=== PATIENT | female | born 1980 | race Caucasian/White ===

== ENCOUNTER 2017-01-07 08:14 | Emergency (ER) | payer OTHER ==
[~2017-01-07] VITALS: Ht 170.2 cm; Wt 66.1 kg
[~2017-01-07 08:14] MED LIST: BIOT1TAB5 PO; CALC-478 PO; DOCO1CAP PO; PRENTAB26 PO
[2017-01-07 08:16] VITALS: TEMP 36.7; Ht 170.2 cm; Wt 66.1 kg
[2017-01-07] MEDS ORDERED: KETOROLAC TROMETHAMINE 60 MG/2 ML VIAL IM STA (08:51)
[2017-01-07] MEDS ORDERED: IBUP-1050 PO (09:04)
[2017-01-07] MEDS ORDERED: MULT-506 PO (09:06)
--- NOTE | 2017-01-07 09:24 | DIAGNOSTIC IMAGING REPORT ---
RIGHT ANKLE 3 VIEWS CLINICAL HISTORY: Twisting injury. Fall. FINDINGS: 3 views of the right ankle are obtained. No prior studies are available for comparison at the time of dictation. The skeletal structures are well mineralized. No fracture is seen. The ankle mortise is intact. There is no joint effusion. The overlying soft tissues are within normal limits. IMPRESSION: Unremarkable radiographic assessment of the right ankle. Electronically signed by: Antony Gomez M.D. 01/07/2017 9:23 AM Dictated Date/Time: 01/07/2017 9:22 AM
[2017-01-07] MEDS ORDERED: HYDR-5688 PO (10:20)
--- NOTE | 2017-01-07 10:24 | EMERGENCY ROOM VISIT NOTE ---
ED Visit Note First contact with patient: 08:21 CHIEF COMPLAINT: Fall last night, right foot and ankle and sacral pain HISTORY OF PRESENT ILLNESS: Patient is a healthy 36-year-old white female who presents to the emergency department for evaluation of right foot and ankle pain and sacral pain. She slipped on her stairs last evening, sustaining an inversion injury to the right foot and ankle, then fell landing on her buttocks and slid down the remaining stairs. She complains of bruising, pain, swelling and superficial abrasions in the lateral aspect of the right foot and ankle, as well as sacral pain. She is more comfortable if she keeps pressure on the right hip and buttock. She has been able to walk and bear weight, but has been keeping more weight on the medial aspect of the foot. She took ibuprofen with minimal relief. She denies any lumbar back pain, no numbness, tingling or weakness into the lower extremities, no bowel or bladder incontinence. She did report some sacral discomfort when she had a bowel movement this morning. She rates her pain a 8/10. She denies any other injuries. REVIEW OF SYSTEMS: Review of systems as per HPI. All other systems reviewed were negative. 10 systems reviewed. PMH: Electronic medical records are reviewed and summarized as above/below. See Problem List. SOCIAL HISTORY: Patient lives at home with her and children. 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 Does not smoke. PHYSICAL EXAM: Vital Signs: Reviewed Nurse's notes. MENTAL STATUS: Uncomfortable appearing 36-year-old white female who is awake and alert in mild distress due to her stated complaint. MUSCULOSKELETAL: Examination of the right foot and ankle show superficial abrasion, and ecchymosis laterally over the ankle, and into the dorsum of the left foot. She is tenderness over the lateral malleolus, the lateral ankle ligaments and over the proximal fifth metatarsal head. No pain over the proximal fibular head. Lisfranc joint is negative. There is no deformity. The foot and toes are warm and well-perfused. Sensation to pain and light touch is intact. SPINE: Examination of the sacrococcygeal region does not show any ecchymosis, abrasions or outward signs of trauma. She is exquisitely tender over the coccyx , no obvious deformity. There is no pain over the lumbar spine. Bilateral lower extremity's are neurovascularly intact. EMERGENCY DEPARTMENT COURSE: Patient was medicated with Toradol 60 mg IM. X- rays of the right foot and ankle were obtained, and negative for acute fracture or bony abnormality. Conservative care measures were discussed. Patient declined postoperative shoe. She clinically has a right foot and ankle sprain. Possibility of a coccygeal contusion versus fracture were also discussed. Treatment recommendations were the same whether radiographs were performed or not, and she was agreeable to defer on coccyx x-rays. She was given a prescription for Sylmar to use for pain. She was discharged home in good condition. She rated her pain a 7/10 at discharge. Medication reconciliation: I attest that I have personally reviewed the patient' s current medication list. Blood pressure screening : Patient was found to have normal blood pressure on screening and does not require follow-up. Differential diagnosis include foot verses ankle sprain/fracture, contusion, dislocation. Problem List Medical Problems: (1) Asthma Status: Chronic (2) contractions Status: Resolved (3) labor in third trimester Status: Resolved Current/Historical Medications Scheduled Biotin (Biotin), 1,000 MCG PO DAILY Wpcvnpr-Txsjjexsy-Bsfv (Calcium & Magnesium + Zin 334-134-5 mg), 1 TAB PO DAILY Docosahexaenoic Acid ([address]), 100 MG PO DAILY Ibuprofen (Advil), 600 MG PO DAILY Multivitamin (Multivitamin), 1 TAB PO DAILY Scheduled PRN Hydrocodone/Acetaminophen 5MG/325MG (Sylmar 5MG/325MG), 1-2 TABLETS PO Q4 PRN for Pain Allergies Coded Allergies: Adhesives (Verified Allergy, Mild, Hives, 01/07/17) BEE STING (Verified Allergy, Mild, hives, 01/07/17) Latex1 -Allergic Contact Dermititis (Verified Allergy, Mild, Hives, 01/07/17 ) Vital Signs Date Time Temp Pulse Resp B/P (MAP) Pulse Ox O2 Delivery O2 Flow Rate FiO2 01/07/17 10:42 72 20 120/72 97 01/07/17 09:46 77 16 133/77 98 Room Air 01/07/17 08:16 36.7 99 18 141/82 97 Room Air Medications Administered Medications (Trade) Dose Ordered Sig/Tyler Route Start Time Stop Time Status Last Admin Dose Admin Ketorolac Tromethamine (Toradol Inj) 60 mg NOW STAT IM 01/07/17 08:51 01/07/17 08:53 DC 01/07/17 09:03 60 MG Departure Information Impression Primary Impression: Right foot sprain Additional Impressions: Right ankle sprain Injury of coccyx Prescriptions Hydrocodone/Acetaminophen 5MG/325MG (Sylmar 5MG/325MG) Tab 1-2 TABLETS PO Q4 Y for Pain, #20 TAB For Initial Treatment Prov: Antoinette Jimenez PA 01/07/17 Referrals Maria Elena Quevedo D.O. (PCP) Patient Instructions My [facility] Additional Instructions Hydrocodone/Acetaminophen (Sylmar) 5/325 mg: Take 1-2 pills every four hours for breakthrough pain. Avoid alcohol, operating machinery or dangerous equipment, working on ladders or roofs, DRIVING, or situations where being under the influence may be dangerous. It is recommended to use an qctr-toj-yfiqlri stool softener such as Colace, 100mg twice daily while taking this medication to avoid constipation. Ibuprofen(Motrin, Advil) may be used for fever or pain. Use 600mg every six hours as needed. Take with food. Avoid using more than 2400mg in a 24 hour period. Do not use 2400mg per day for more than three consecutive days without physician direction. Prolonged inappropriate use can lead to stomach upset or ulcers. This medication can be taken if you need to drive, work, or perform activities which may be dangerous when taking narcotic pain medication. (AND/OR) Acetaminophen(Tylenol) may be used for fever or pain. Use 1000mg every six hours as needed. Avoid using more than 3000mg in a 24 hour period. This medication can be taken if you need to drive, work, or perform activities which may be dangerous when taking narcotic pain medication. Ice compresses for 20 minutes at a time four times daily for 2-3 days. Rest and elevate your injuries. Continue current medications. Return to the ER immediately for any numbness, tingling, severe pain, extreme swelling in the extremity or as needed. Follow-up with your primary care provider or orthopedics if your symptoms are not improving in the next 5-7 days. Problem Qualifiers Primary Impression: Right foot sprain Encounter type: initial encounter Qualified Codes: S93.601A - Unspecified sprain of right foot, initial encounter Additional Impressions: Right ankle sprain Encounter type: initial encounter Involved ligament of ankle: unspecified ligament Qualified Codes: S93.401A - Sprain of unspecified ligament of right ankle, initial encounter Injury of coccyx Encounter type: initial encounter Qualified Codes: S39.92XA - Unspecified injury of lower back, initial encounter
[2017-01-07 10:42] VITALS: BP 120/72; PULSE 72; O2SAT 97
--- NOTE | 2017-01-07 11:01 | DIAGNOSTIC IMAGING REPORT ---
RIGHT FOOT MIN 3 VIEWS ROUTINE CLINICAL HISTORY: 36 years year-old Female presenting with RIGHT, TWISTING INJURY Right. TECHNIQUE: Frontal, oblique, and lateral views of the right foot were obtained. COMPARISON: None. FINDINGS: No acute fracture, malalignment, or radiopaque foreign body. Soft tissues are within normal limits. No ankle joint effusion is evident. IMPRESSION: 1. No acute osseous injury. Electronically signed by: Andre Koo 01/07/2017 9:30 AM Dictated Date/Time: 01/07/2017 9:25 AM
== END 2017-01-07 10:42 | disposition home or self-care (01) ==
LOC: C.EDB 08:15 → C.EDA 10:42
DX: S93.601A Unspecified sprain of right foot, initial encounter (principal); S93.401A Sprain of unspecified ligament of right ankle, initial encounter; S39.92XA Unspecified injury of lower back, initial encounter; X50.9XXA Other and unspecified overexertion or strenuous movements or postures, initial encounter; J45.909 Unspecified asthma, uncomplicated

== ENCOUNTER → 2017-06-27 | Outpatient (CLI) | payer BC ==
[~2017-06-27] MED LIST changes: +HYDR-5688 PO; +IBUP-1050 PO; +MULT-506 PO; -PRENTAB26 PO
--- NOTE | 2017-06-27 14:00 | DIAGNOSTIC IMAGING REPORT ---
(RENAL)RETROPERITON COMP HISTORY: 36 years-old Female R31.9 history of kidney stones. COMPARISON: None available TECHNIQUE: Multiple real-time sonographic images of the kidneys and urinary bladder were obtained assessing grayscale appearance and color flow FINDINGS: The right kidney measures 11.6 x 4.8 x 5.2 cm demonstrates mild dilation of the renal pelvis and central calyces. There is also mild dilation of the proximal right ureter Cortical medullary differentiation is preserved. No focal renal calculi or mass lesions identified. Left kidney measures 11.1 x 6.6 x 5.0 cm and is unremarkable without renal calculi, hydronephrosis or focal renal mass lesions. Bilateral ureteral jets are noted. Urinary bladder is partially distended and otherwise unremarkable. IMPRESSION: 1. Mild dilation of the right renal pelvis, central calyces and proximal right ureter suspicious for possible distal obstructive etiology not imaged on this study. 2. Unremarkable sonographic appearance of the left kidney and urinary bladder. The above report was generated using voice recognition software. It may contain grammatical, syntax or spelling errors. Electronically signed by: Cristino Miranda M.D. 06/27/2017 1:58 PM Dictated Date/Time: 06/27/2017 1:50 PM
== END | disposition home or self-care (01) ==
LOC: C.ULTR 13:24
PROVIDERS: ATTEND Obstetrics & Gynecology
DX: R31.9 Hematuria, unspecified (principal)